=== PATIENT | male | born 2000 | race Caucasian/White ===

== ENCOUNTER 2020-06-06 20:00 | Emergency (ER) | payer OTHER ==
[2020-06-06] MEDS ORDERED: fentaNYL 50 MCG/ML SDV IVPUSH ONE (20:06)
--- NOTE | 2020-06-06 20:17 | EDM.PDOC ---
ED HPI GENERAL MEDICAL PROBLEM - General Chief Complaint: Lower Extremity Injury/Pain Stated Complaint: right leg pain, stepped on by bull Time Seen by Provider: 06/06/20 20:00 Source of Information: Reports: Patient, EMS History Limitations: Reports: No Limitations - History of Present Illness INITIAL COMMENTS - FREE TEXT/NARRATIVE: Issa is a 20 year old male who presents to the ER with complaint of right lower extremity pain. Was riding a bull earlier and was thrown off and then stepped on by the bull. States heard a snap and had sharp pain and was unable to bear weight. EMS placed a splint prior to arrival. Denies pain elsewhere. Did not lose consciousness or hit his head, did crawl away after the injury. Admits to severe pain with removing his cowboy boot, got shaky. EMS reports blood pressure did rise with this. GCS 15. Denies PMH except fractures, a punctured lung. Currently on no medications. 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 [No Known Home Meds] 01/26/15 [History] Past Medical History Musculoskeletal History: Reports: Other (See Below) (multiple fractures in past) Other Musculoskeletal History: ganglian cyst removed Social & Family History - Tobacco Use Tobacco Use Status *Q: Current Every Day Tobacco User Tobacco Use Within Last Twelve Months: Cigarettes, Snuff/Dip - Alcohol Use Alcohol Use in Last Twelve Months: Yes Review of Systems - Review of Systems Review Of Systems: See Below Constitutional: Reports: No Symptoms Eyes: Reports: No Symptoms Ears: Reports: No Symptoms Nose: Reports: No Symptoms Mouth/Throat: Reports: No Symptoms Respiratory: Denies: Shortness of Breath Cardiovascular: Denies: Chest Pain GI/Abdominal: Denies: Abdominal Pain, Nausea, Vomiting Genitourinary: Reports: No Symptoms Musculoskeletal: Reports: Leg Pain Skin: Reports: Bruising, Wound (abrasions to right lower extremity) Neurological: Reports: No Symptoms ED EXAM, GENERAL - Physical Exam Exam: See Below Exam Limited By: No Limitations General Appearance: Alert, WD/WN, No Apparent Distress Ears: Normal External Exam, Normal TMs Nose: Normal Inspection, Normal Mucosa, No Blood Throat/Mouth: Normal Inspection, Normal Oropharynx Head: Atraumatic, Normocephalic Neck: Normal Inspection, Supple, Non-Tender Respiratory/Chest: No Respiratory Distress, Lungs Clear, Normal Breath Sounds Cardiovascular: Regular Rate, Rhythm GI/Abdominal: Normal Bowel Sounds, Soft, Non-Tender Extremities: Limited Range of Motion, Other (abrasions to right lower extremity, bruising to mid gupta) Neurological: Alert, Oriented Skin Exam: Wound/Incision Course - Vital Signs Last Recorded V/S: Last Vital Signs Temp 98.9 F 06/06/20 20:05 Pulse 92 06/06/20 20:05 Resp 14 06/06/20 20:05 BP 137/89 06/06/20 20:05 Pulse Ox 100 06/06/20 20:05 - Orders/Labs/Meds Orders: Active Orders 24 hr Category Date Time Status Tibia Fibula Rt [CR] Stat Exams 06/06/20 20:21 Ordered Meds: Medications Discontinued Medications Generic Name Dose Route Start Last Admin Trade Name Freq PRN Reason Stop Dose Admin Fentanyl 25 mcg 06/06/20 20:06 06/06/20 20:12 Fentanyl IVPUSH 06/06/20 20:07 25 mcg ONETIME ONE Administration - Re-Assessments/Exams Free Text/Narrative Re-Assessment/Exam: 06/06/20 20:53 Patient noted to have midshaft tibia fracture. Cam boot placed. Discussed fracture care with patient. Advised to contact his PCP to arrange for an ortho consult on this. No weight bearing. Discussed pain meds for discharge but refuses. States "make me messed up" and "knock me out'. Will take ibuprofen. Will arrange for his own crutches. Departure - Departure Time of Disposition: 20:55 Disposition: Home, Self-Care 01 Condition: Fair Clinical Impression: Fracture of tibia - Discharge Information *PRESCRIPTION DRUG MONITORING PROGRAM REVIEWED*: No *COPY OF PRESCRIPTION DRUG MONITORING REPORT IN PATIENT MARIANNA: No Instructions: Tibial Fracture, Adult, [id number] Forms: ED Department Discharge Additional Instructions: 1. Rest 2. Ice area tonight 3. Wear cam boot at all times 4. No weight bearing 5. Tylenol or ibuprofen for discomfort 6. Call primary care provider on Monday to consult with ortho Sepsis Event Note (ED) - Focused Exam Vital Signs: Vital Signs Temp Pulse Resp BP Pulse Ox 06/06/20 20:05 98.9 F 92 14 137/89 100 - My Orders Last 24 Hours: My Active Orders 06/06/20 20:21 Tibia Fibula Rt [CR] Stat - Assessment/Plan Last 24 Hours: My Active Orders 06/06/20 20:21 Tibia Fibula Rt [CR] Stat
[2020-06-06 20:33] VITALS: BP 137/89; PULSE 92
--- NOTE | 2020-06-06 22:20 | CR ---
[id number] RAD/RAD Tibia Fibula Right EXAM: RAD Tibia Fibula Right CLINICAL DATA: TRAUMA COMPARISON: NO PREVIOUS SIMILAR EXAM IS AVAILABLE. FINDINGS: A comminuted nondisplaced mid to distal diaphyseal fracture of the right tibia is seen. IMPRESSION: RIGHT TIBIAL FRACTURE DESCRIBED Elieser Starks MD 06/06/20 [id number] Thank you for allowing us to participate in the care of your patient.
== END 2020-06-06 21:28 | disposition home or self-care (01) ==
LOC: VM.ED 20:00 → SUPCPDRO 20:00 → VM.ED 21:28
DX: S82.254A Nondisplaced comminuted fracture of shaft of right tibia, initial encounter for closed fracture (principal); Z72.0 Tobacco use; W55.29XA Other contact with cow, initial encounter
CPT/HCPCS: 73590-RT; 96374; 99283; 99284-25; J3010